=== PATIENT | female | born 1975 ===

== ENCOUNTER 2017-05-07 16:32 | Emergency (ER) | payer SELFPAY ==
[2017-05-07 16:32] VITALS: BMI 24.5
[2017-05-07 16:46] VITALS: BP 131/72; PULSE 83; RESP 16; TEMP 99.1; O2SAT 99
--- NOTE | 2017-05-07 17:13 | ED PDOC ---
HPI: Female Pain Time Seen by Provider: 05/07/17 16:50 Chief Complaint (Nursing): Female Genitourinary Chief Complaint (Provider): abdominal pain History Per: Patient (42 y/o female unknown LMP here with left lower quadrant pain and vaginal bleeding yesterday. Notes temp 100.1 Denies any dysuria. Has not had US confirmation of .) Past Medical History Reviewed: Historical Data, Nursing Documentation, Vital Signs Vital Signs: Last Vital Signs Temp 99.1 F 05/07/17 16:42 Pulse 83 05/07/17 16:42 Resp 16 05/07/17 16:42 BP 131/72 05/07/17 16:42 Pulse Ox 99 05/07/17 16:42 - Medical History PMH: Asthma (NEVER HOSPITALIZED), Gall Bladder Disease, Kidney Stones - Surgical History Surgical History: Cholecystectomy - Family History Family History: States: Unknown Family Hx - Immunization History Hx Tetanus Toxoid Vaccination: No Hx Influenza Vaccination: No Hx Pneumococcal Vaccination: No - Home Medications Home Medications: Ambulatory Orders Medication Instructions Recorded No Known Home Med 04/23/17 - Allergies Allergies/Adverse Reactions: Allergies Allergy/AdvReac Type Severity Reaction Status Date / Time No Known Allergies Allergy Verified 05/07/17 16:42 Review of Systems ROS Statement: Except As Marked, All Systems Reviewed And Found Negative Gastrointestinal: Positive for: Abdominal Pain Physical Exam - Reviewed Nursing Documentation Reviewed: Yes Vital Signs Reviewed: Yes - Physical Exam Appears: Positive for: Well, Non-toxic, No Acute Distress Head Exam: Positive for: ATRAUMATIC, NORMAL INSPECTION, NORMOCEPHALIC Skin: Positive for: Normal Color, Warm, DRY Eye Exam: Positive for: EOMI, Normal appearance, PERRL ENT: Positive for: Normal ENT Inspection Neck: Positive for: Normal, Painless ROM Cardiovascular/Chest: Positive for: Regular Rate, Rhythm Respiratory: Positive for: CNT, Normal Breath Sounds Gastrointestinal/Abdominal: Positive for: Normal Exam, Bowel Sounds, Soft Pelvic Exam: Positive for: Tender Adnexa (left adnexal tenderness) Back: Positive for: Normal Inspection Extremity: Positive for: Normal ROM Neurologic/Psych: Positive for: Alert, Oriented - ECG O2 Sat by Pulse Oximetry: 99 - Progress ED Course And Treament: patient left before treatment started. Disposition - Clinical Impression Clinical Impression: Abdominal pain during - Patient ED Disposition Is Patient to be Admitted: No - Disposition Disposition: Left W/O Treatment Disposition Time: 17:41 Condition: FAIR Forms: [email or web address] (Nepali)
== END 2017-05-07 18:00 | disposition left against medical advice (07) ==
LOC: H.ER 16:32
DX: O26.899 Other specified pregnancy related conditions, unspecified trimester (principal)

== ENCOUNTER 2018-10-05 13:28 | Emergency (ER) | payer OTHER, SELFPAY ==
[2018-10-05 13:29] VITALS: BMI 24.5
[2018-10-05] MEDS ORDERED: Sodium Chloride 0.9% 1,000 ML IV STA (14:19)
--- NOTE | 2018-10-05 14:21 | ED PDOC ---
HPI: General Adult Time Seen by Provider: 10/05/18 14:20 Chief Complaint (Nursing): Back Pain Chief Complaint (Provider): BACK PAIN/DIZZINESS History Per: Patient (43 Y/O FEMALE HERE WITH DIZZINESS ONGOING X 7 DAYS. STATES SYMPTOMS BEGAN WITH CHEST PAIN NOTED PRECEDING DIZZINESS. HAS HAD ADDITIONAL ABDOMINAL PAIN INTERMITTENT AT THAT TIME ASSOCIATED WITH NAUSEA. TODAY IS ADDITIONAL CONCERNED ABOUT LOWER BACK PAIN WITH INTERMITTENT NUMBNESS IN LOWER EXTREMITIES.) Past Medical History Reviewed: Historical Data, Nursing Documentation, Vital Signs Vital Signs: Last Vital Signs Temp 98.3 F 10/05/18 13:43 Pulse 69 10/05/18 13:43 Resp 17 10/05/18 13:43 BP 135/74 10/05/18 13:43 Pulse Ox 100 10/05/18 13:43 - Medical History PMH: Asthma (NEVER HOSPITALIZED), Gall Bladder Disease, Kidney Stones, Chronic Kidney Disease - Surgical History Surgical History: Cholecystectomy (1997) - Family History Family History: States: Unknown Family Hx - Immunization History Hx Tetanus Toxoid Vaccination: No Hx Influenza Vaccination: Yes Hx Pneumococcal Vaccination: No - Home Medications Home Medications: Ambulatory Orders Medication Instructions Recorded Doxycycline Hyclate 100 mg PO Q12 05/16/17 Ibuprofen [Motrin Tab] 600 mg PO Q8 #30 tab 05/16/17 Ibuprofen [Motrin] 600 mg PO QID PRN 05/16/17 Famotidine [Pepcid] 20 mg PO BID #10 tab 10/05/18 Naproxen 375 mg PO Q8 PRN #15 tablet 10/05/18 - Allergies Allergies/Adverse Reactions: Allergies Allergy/AdvReac Type Severity Reaction Status Date / Time No Known Allergies Allergy Verified 05/16/17 12:09 Review of Systems ROS Statement: Except As Marked, All Systems Reviewed And Found Negative Physical Exam - Reviewed Nursing Documentation Reviewed: Yes Vital Signs Reviewed: Yes - Physical Exam Appears: Positive for: Well, Non-toxic, No Acute Distress Head Exam: Positive for: ATRAUMATIC, NORMAL INSPECTION, NORMOCEPHALIC Skin: Positive for: Normal Color, Warm, DRY Eye Exam: Positive for: EOMI, Normal appearance, PERRL ENT: Positive for: Normal ENT Inspection Neck: Positive for: Normal, Painless ROM Cardiovascular/Chest: Positive for: Regular Rate, Rhythm Respiratory: Positive for: CNT, Normal Breath Sounds Gastrointestinal/Abdominal: Positive for: Normal Exam, Soft Back: Positive for: Normal Inspection, Vertebral Tenderness (LOWER PARALUMBAR TENDERNESS). Negative for: L CVA Tenderness, R CVA Tenderness Extremity: Positive for: Normal ROM Neurologic/Psych: Positive for: Alert, Oriented - Laboratory Results Result Diagrams: 10/05/18 14:30 10/05/18 14:30 - ECG ECG Rhythm: Positive for: Sinus Bradycardia (sinus bradycardia 59 bpm no ectopy no acute changes done at 14:21) O2 Sat by Pulse Oximetry: 100 Disposition - Clinical Impression Clinical Impression: Back strain, Dizziness - Patient ED Disposition Is Patient to be Admitted: No - Disposition Disposition: Routine/Home Disposition Time: 16:41 Condition: FAIR Prescriptions: Famotidine [Pepcid] 20 mg PO BID #10 tab Naproxen 375 mg PO Q8 PRN #15 tablet PRN Reason: Pain, Moderate (4-7) Instructions: Vertigo (a Type of Dizziness), Low Back Pain (DC) Forms: [facility] ED School/Work Excuse
[2018-10-05 15:04] LABS: BASO # 0.1 K/uL (0.0-0.2); BASO % 1.1 % (0.0-2.0); EOS # 0.4 K/uL (0.0-0.7); EOS % 7.5 % (0.0-4.0); HEMOGLOBIN 9.6 g/dL (12.0-16.0); LYMPH # 1.5 K/uL (1.0-4.3); MEAN CELL VOLUME 70.5 fl (81.0-99.0); MEAN CORPUSCULAR HEMOGLOBIN 21.7 pg (27.0-31.0); MEAN CORPUSCULAR HGB CONC 30.8 g/dL (33.0-37.0); MEAN PLATELET VOLUME 8.3 fl (7.2-11.7); MONO # 0.3 K/uL (0.0-0.8); MONO % 5.8 % (0.0-10.0); NEUT % 57.6 % (50.0-75.0); RBC 4.41 Mil/uL (3.80-5.20); RED CELL DISTRIBUTION WIDTH 17.4 % (11.5-14.5); WHITE BLOOD COUNT 5.2 K/uL (4.8-10.8)
[2018-10-05 15:07] LABS: SQUAMOUS EPITHIAL < 1 /hpf (0-5); URINE BILIRUBIN NEGATIVE (NEGATIVE); URINE BLOOD LARGE (NEGATIVE); URINE CLARITY SLIGHTY-CLOUDY (Clear); URINE COLOR YELLOW (YELLOW); URINE GLUCOSE (UA) NEG (NEGATIVE); URINE HYALINE CAST 0-2 /hpf (0-2); URINE LEUKOCYTE ESTERASE NEG Leu/uL (Negative); URINE PROTEIN NEGATIVE (NEGATIVE); URINE UROBILINOGEN 0.2-1.0 mg/dL (0.2-1.0)
[2018-10-05 15:14] LABS: ALBUMIN 3.9 g/dL (3.5-5.0); ALT/SGPT 25 U/L (9-52); AST/SGOT 25 U/L (14-36); BLOOD UREA NITROGEN 9 mg/dl (7-17); CALCIUM 9.1 mg/dL (8.4-10.2); GFR NON-AFRICAN AMERICAN > 60
--- NOTE | 2018-10-05 16:24 | CARD ---
APPROVED REPORT Date of service: 10/05/2018 EKG Measurement Heart [id number] IL 124P-3 [id number] <Conclusion> Sinus bradycardia Otherwise normal ECG
[2018-10-05 17:02] VITALS: BP 130/78; PULSE 78; RESP 19; TEMP 97.6; O2SAT 98
== END 2018-10-05 17:03 | disposition home or self-care (01) ==
LOC: H.ER 13:28
DX: S39.012A Strain of muscle, fascia and tendon of lower back, initial encounter (principal); X58.XXXA Exposure to other specified factors, initial encounter; Y92.89 Other specified places as the place of occurrence of the external cause; R42 Dizziness and giddiness
CPT/HCPCS: 80053; 81003; 81025; 83735; 84484; 85025; 93005; 96374; 96375; 99282; J1885; J7030

== ENCOUNTER 2018-11-02 08:47 | Emergency (ER) | payer OTHER ==
[2018-11-02 08:47] VITALS: BMI 24.5
[2018-11-02 09:05] VITALS: RESP 17; O2SAT 100
[2018-11-02] MEDS ORDERED: Sodium Chloride 0.9% 1,000 ML IV STA (09:26)
[2018-11-02 10:23] LABS: BASO # 0.1 K/uL (0.0-0.2); BASO % 1.2 % (0.0-2.0); EOS # 0.4 K/uL (0.0-0.7); EOS % 7.6 % (0.0-4.0); HEMOGLOBIN 8.1 g/dL (12.0-16.0); LYMPH # 1.1 K/uL (1.0-4.3); LYMPH % 23.9 % (20.0-40.0); MEAN CELL VOLUME 72.2 fl (81.0-99.0); MEAN CORPUSCULAR HGB CONC 30.5 g/dL (33.0-37.0); MEAN PLATELET VOLUME 8.4 fl (7.2-11.7); MONO # 0.3 K/uL (0.0-0.8); MONO % 5.5 % (0.0-10.0); NEUT # 2.9 K/uL (1.8-7.0); NEUT % 61.8 % (50.0-75.0); RBC 3.68 Mil/uL (3.80-5.20); RED CELL DISTRIBUTION WIDTH 18.2 % (11.5-14.5); WHITE BLOOD COUNT 4.7 K/uL (4.8-10.8)
[2018-11-02 11:13] LABS: ALB/GLOB RATIO 1.2 (1.0-2.1); ALT/SGPT 27 U/L (9-52); AST/SGOT 22 U/L (14-36); BLOOD UREA NITROGEN 6 mg/dl (7-17); CALCIUM 8.5 mg/dL (8.4-10.2); GFR NON-AFRICAN AMERICAN > 60
[2018-11-02 11:43] LABS: URINE COLOR RED (YELLOW)
[2018-11-02 11:44] LABS: URINE BILIRUBIN NEGATIVE (NEGATIVE); URINE CLARITY CLOUDY (Clear); URINE GLUCOSE (UA) NEGATIVE (NEGATIVE)
[2018-11-02 11:45] LABS: URINE BLOOD LARGE (NEGATIVE)
[2018-11-02 11:46] LABS: SQUAMOUS EPITHIAL 6 /hpf (0-5); URINE BACTERIA RARE (<OCC); URINE LEUKOCYTE ESTERASE SMALL Leu/uL (Negative); URINE PROTEIN 100 mg/dL (NEGATIVE); URINE UROBILINOGEN 0.2-1.0 mg/dL (0.2-1.0)
--- NOTE | 2018-11-02 12:13 | US ---
Date of service: 11/02/2018 HISTORY: LLQ pain, heavy bleeding 4 days duration. Personal history of fibroids. LMP 10/26/2018. COMPARISON: None available. TECHNIQUE: Transabdominal, transvaginal. Real -time technique with 2D, duplex and color Doppler. FINDINGS: UTERUS: Measures 6.9 x 9.8 x 12.3 cm. Enlarged heterogeneous . Location of fibroid and size: Submucosal Eduardo to the left of the midline 5.3 x 5.4 x 6.2 cm. ENDOMETRIUM: Complex fluid collection/mass within the endometrium 1.1 x 1.7 x 1.7 cm. Fluid, debris and septations identified. Overall endometrial thickness 3.5 cm. CERVIX: No cervical abnormality identified.Incidental finding: Nabothian cysts the largest measures 1.7 x 1.8 cm RIGHT OVARY: Measures 1.7 x 2.6 x 2.6 cm. No solid mass. Normal flow. LEFT OVARY: Measures 4.2 x 3.8 x 5.5 cm. No solid mass. Normal flow. Simple cyst 1.1 x 1.5 x 1.5 cm. Adjacent cyst 2.8 x 3 x 3.5 cm. FREE FLUID: No significant free fluid noted. OTHER FINDINGS: None. IMPRESSION: 1. Markedly thickened endometrium with cyst-like structure within the endometrial echo complex. Based on clinical history including an LMP it is unlikely this represents products of conception. Nonetheless tests may be valuable for further assessment. 2. Solitary uterine fibroid. 3. Adnexal cyst limited to the right ovary.
--- NOTE | 2018-11-02 16:12 | ED PDOC ---
HPI: Female Pain Time Seen by Provider: 11/02/18 09:08 Chief Complaint (Nursing): Abdominal Pain Chief Complaint (Provider): Pelvic Pain History Per: Patient Onset/Duration Of Symptoms: Days (x4-5) Current Symptoms Are (Timing): Still Present Additional Complaint(s): 43 y/o female with a PMHx of Kidney Stones, Asthma and Anemia presents to the ED for evaluation of pelvic pain associated with heavy menstruation, ongoing for 4- 5 days. Patient reports pain radiates to the back. Patient notes of having regular but normal menstrual cycles. Otherwise, patient denies fever, nausea, vomiting, diarrhea and urinary symptoms. Of note, patient states she is taking iron supplementation for Anemia. PMD: none provided CLAIMS EXAMINER: In [place], [place] Past Medical History Reviewed: Historical Data, Nursing Documentation, Vital Signs Vital Signs: Last Vital Signs Temp 98.4 F 11/02/18 09:03 Pulse 67 11/02/18 09:03 Resp 17 11/02/18 09:03 BP 124/75 11/02/18 09:03 Pulse Ox 100 11/02/18 09:03 - Medical History PMH: Asthma (NEVER HOSPITALIZED), Gall Bladder Disease, Kidney Stones, Chronic Kidney Disease - Surgical History Surgical History: Cholecystectomy (1997), - Family History Family History: States: Unknown Family Hx - Immunization History Hx Tetanus Toxoid Vaccination: No Hx Influenza Vaccination: Yes Hx Pneumococcal Vaccination: No - Home Medications Home Medications: Ambulatory Orders Medication Instructions Recorded Doxycycline Hyclate 100 mg PO Q12 05/16/17 Ibuprofen [Motrin Tab] 600 mg PO Q8 #30 tab 05/16/17 Ibuprofen [Motrin] 600 mg PO QID PRN 05/16/17 Famotidine [Pepcid] 20 mg PO BID #10 tab 10/05/18 Naproxen 375 mg PO Q8 PRN #15 tablet 10/05/18 Cephalexin [Keflex] 500 mg PO BID #10 tab 11/02/18 medroxyPROGESTERONEone Acetate 5 mg PO DAILY #5 tab 11/02/18 [Provera] - Allergies Allergies/Adverse Reactions: Allergies Allergy/AdvReac Type Severity Reaction Status Date / Time No Known Allergies Allergy Verified 05/16/17 12:09 Review of Systems ROS Statement: Except As Marked, All Systems Reviewed And Found Negative Constitutional: Negative for: Fever Gastrointestinal: Negative for: Nausea, Vomiting, Diarrhea Genitourinary Female: Positive for: Vaginal Bleeding, Pelvic Pain. Negative for: Dysuria, Frequency, Hematuria Physical Exam - Reviewed Nursing Documentation Reviewed: Yes Vital Signs Reviewed: Yes - Physical Exam Appears: Positive for: No Acute Distress Head Exam: Positive for: ATRAUMATIC, NORMOCEPHALIC Skin: Positive for: Normal Color, Warm, Dry. Negative for: Pallor Eye Exam: Positive for: Normal appearance, EOMI, PERRL Neck: Positive for: Normal Cardiovascular/Chest: Positive for: Regular Rate, Rhythm. Negative for: Tachycardia Respiratory: Positive for: Normal Breath Sounds. Negative for: Respiratory D istress Gastrointestinal/Abdominal: Positive for: Tenderness (Lower abdominal tenderness (left > right)) Pelvic Exam: Positive for: Blood (Mild to moderate blood involvement with small clots noted), Other (cervical os closed) Extremity: Positive for: Normal ROM. Negative for: Deformity Neurological/Psych: Positive for: Awake, Alert, Oriented (x3). Negative for: Motor/Sensory Deficits - Laboratory Results Result Diagrams: 11/02/18 09:47 11/02/18 09:47 Lab Results: Total Bilirubin 0.3 mg/dl (0.2-1.3) 11/02/18 09:47 AST 22 U/L (14-36) 11/02/18 09:47 ALT 27 U/L (9-52) 11/02/18 09:47 Alkaline Phosphatase 61 U/L (38-126) 11/02/18 09:47 Total Protein 7.3 G/DL (6.3-8.2) 11/02/18 09:47 Albumin 4.0 g/dL (3.5-5.0) 11/02/18 09:47 Globulin 3.3 gm/dL (2.2-3.9) 11/02/18 09:47 Albumin/Globulin Ratio 1.2 (1.0-2.1) 11/02/18 09:47 Urine Color Red (YELLOW) 11/02/18 09:47 Urine Clarity Cloudy (Clear) 11/02/18 09:47 Urine pH 6.0 (5.0-8.0) 11/02/18 09:47 Ur Specific [place] 1.014 (1.003-1.030) 11/02/18 09:47 Urine Protein 100 mg/dL (NEGATIVE) 11/02/18 09:47 Urine Glucose (UA) Negative mg/dL (NEGATIVE) 11/02/18 09:47 Urine Ketones Negative mg/dL (NEGATIVE) 11/02/18 09:47 Urine Blood Large (NEGATIVE) 11/02/18 09:47 Urine Nitrate Negative (NEGATIVE) 11/02/18 09:47 Urine Bilirubin Negative (NEGATIVE) 11/02/18 09:47 Urine Urobilinogen 0.2-1.0 mg/dL (0.2-1.0) 11/02/18 09:47 Ur Leukocyte Esterase Small Sangeeta/uL (Negative) 11/02/18 09:47 Urine RBC (Auto) 40903 /hpf (0-3) H 11/02/18 09:47 Urine Microscopic WBC 5 /hpf (0-5) 11/02/18 09:47 Ur Squamous Epith Cells 6 /hpf (0-5) H 11/02/18 09:47 Urine Bacteria Rare (<OCC) 11/02/18 09:47 - ECG O2 Sat by Pulse Oximetry: 100 (RA) Pulse Ox Interpretation: Normal Medical Decision Making Medical Decision Making: Time: 925 A/P: -- CMP -- ED Urine -- ED Urine Dipstick -- CBC with Differentials -- Sodium Chloride IV 1000 mls/hr -- Pepcid 20 mg IV -- Toradol 15 mg IVP -- Urine Culture -- Urinalysis -- US Pelvis/Transvaginal -- Blood work reviewed and demonstrate a hemoglobin of 8.1 that is slightly lower than hemoglobin from one month prior. -- Discussed with CLAIMS EXAMINER on-call, Dr. Brooks who recommends OCPs or Provera. Time: 1558 -- Discussed with patient who preferred to not take intermediate card tender medications. Therefore, patient to be prescribed a short course of Provera for stability and with instructions to follow up with CLAIMS EXAMINER this week. Patient is in agreement with plan of care. -- Given lack of tachycardia and blood work, there is no indication for current transfusion. Patient reports of having iron pills at home. Scribe Attestation: Documented by Deja Chinchilla, acting as a scribe for Mason Horne III, DO. Provider Scribe Attestation: All medical record entries made by the Scribe were at my direction and personally dictated by me. I have reviewed the chart and agree that the record a ccurately reflects my personal performance of the history, physical exam, medical decision making, and the department course for this patient. I have also personally directed, reviewed, and agree with the discharge instructions and disposition. Disposition - Clinical Impression Clinical Impression: Menometrorrhagia, UTI (urinary tract infection) - Patient ED Disposition Is Patient to be Admitted: No Counseled Patient/Family Regarding: Studies Performed, Diagnosis, Need For Followup, Rx Given - Disposition Disposition: Routine/Home Disposition Time: 15:59 Condition: STABLE Additional Instructions: See your CLAIMS EXAMINER doctor this week for further testing. Return to ER for any worse or new symptoms. Take medications as directed. Prescriptions: Cephalexin [Keflex] 500 mg PO BID #10 tab medroxyPROGESTERONEone Acetate [Provera] 5 mg PO DAILY #5 tab Instructions: Urinary Tract Infection, Adult (DC), Heavy Periods, Endometrial Ablation (DC) Forms: [employer] (Telugu)
[2018-11-02 16:20] VITALS: BP 118/65; PULSE 72; TEMP 98.1
== END 2018-11-02 15:59 | disposition home or self-care (01) ==
LOC: H.ER 08:47
DX: N39.0 Urinary tract infection, site not specified (principal); N92.1 Excessive and frequent menstruation with irregular cycle; D64.9 Anemia, unspecified; R93.89 Abnormal findings on diagnostic imaging of other specified body structures

== ENCOUNTER 2018-11-27 10:47 | Emergency (ER) | payer OTHER, SELFPAY ==
[2018-11-27 10:50] VITALS: BMI 25.9
[2018-11-27 10:53] VITALS: PULSE 78
[2018-11-27] MEDS ORDERED: Sodium Chloride 0.9% 1,000 ML IV STA (11:32)
--- NOTE | 2018-11-27 11:42 | ED PDOC ---
HPI: Female Pain Time Seen by Provider: 11/27/18 10:59 Chief Complaint (Nursing): Abdominal Pain History Per: Patient Additional Complaint(s): Pt. states for the past week she's had heavy vaginal bleeding (pt unable to estimate how many pads per day she uses but states today she is already on her 3rd pad). She's had progressively worsening pelvic cramping x 3 days. She has been using Tylenol without relief. Of note, pt. states she [facility]. Also reports having N/V. Last BM was yesterday and was normal. Denies fever, chills, weakness, chest pain, SOB, dysuria, hx of anemia, previous blood transfusions. Abnormal Vaginal Bleeding: Yes Past Medical History Reviewed: Historical Data, Nursing Documentation, Vital Signs Vital Signs: Last Vital Signs Temp 97.7 F 11/27/18 10:51 Pulse 78 11/27/18 10:51 Resp 20 11/27/18 10:51 BP 131/87 11/27/18 10:51 Pulse Ox 100 11/27/18 10:51 - Medical History PMH: Asthma (NEVER HOSPITALIZED), Gall Bladder Disease, Kidney Stones, Chronic Kidney Disease - Surgical History Surgical History: Cholecystectomy (1997), - Family History Family History: States: No Known Family Hx - Immunization History Hx Tetanus Toxoid Vaccination: No Hx Influenza Vaccination: Yes Hx Pneumococcal Vaccination: No - Home Medications Home Medications: Ambulatory Orders Medication Instructions Recorded Doxycycline Hyclate 100 mg PO Q12 05/16/17 Ibuprofen [Motrin Tab] 600 mg PO Q8 #30 tab 05/16/17 Ibuprofen [Motrin] 600 mg PO QID PRN 05/16/17 Famotidine [Pepcid] 20 mg PO BID #10 tab 10/05/18 Naproxen 375 mg PO Q8 PRN #15 tablet 10/05/18 Cephalexin [Keflex] 500 mg PO BID #10 tab 11/02/18 medroxyPROGESTERONEone Acetate 5 mg PO DAILY #5 tab 11/02/18 [Provera] Naproxen [Naprosyn] 500 mg PO BID PRN #10 tab 11/27/18 - Allergies Allergies/Adverse Reactions: Allergies Allergy/AdvReac Type Severity Reaction Status Date / Time No Known Allergies Allergy Verified 05/16/17 12:09 Review of Systems ROS Statement: Except As Marked, All Systems Reviewed And Found Negative Genitourinary Female: Positive for: Vaginal Bleeding, Pelvic Pain Physical Exam - Physical Exam Appears: Positive for: Well, Non-toxic, No Acute Distress Skin: Positive for: Normal Color, Warm. Negative for: Rash Eye Exam: Positive for: Normal appearance. Negative for: Scleral icterus Cardiovascular/Chest: Positive for: Regular Rate, Rhythm. Negative for: Tachycardia Respiratory: Positive for: Normal Breath Sounds. Negative for: Respiratory Distress Gastrointestinal/Abdominal: Positive for: Normal Exam, Soft. Negative for: Tenderness, Guarding Back: Negative for: L CVA Tenderness, R CVA Tenderness Neurological/Psych: Positive for: Awake, Alert, Oriented (x3) - Laboratory Results Result Diagrams: 11/27/18 11:50 11/27/18 11:50 - ECG O2 Sat by Pulse Oximetry: 100 - Progress ED Course And Treament: Labs, TVUS, toradol 30mg IV, IV NS bolus x 1, zofran 4mg IV ordered. Re-evaluation Time: 13:40 (Pt reports complete relief of pelvic pain. Ad[facility] but is to return to ED immediately if symptoms worsen. ) Condition: Re-examined, Improved Disposition - Clinical Impression Clinical Impression: Fibroids - Patient ED Disposition Is Patient to be Admitted: No - Disposition Referrals: [facility] [Outside] Disposition: Routine/Home Disposition Time: 13:40 Condition: IMPROVED Additional Instructions: FOLLOW UP WITH [facility] FOR FURTHER EVALUATION RETURN TO ED IMMEDIATELY IF SYMPTOMS WORSEN HADLEY VITALE, thank you for letting us take care of you today. Your provider was Antolin Franco MD and you were treated for LOWER ABD PAIN, VAGINAL BLEEDING. The emergency medical care you received today was directed at your acute symptoms. If you were prescribed any medication, please fill it and take as directed. It may take several days for your symptoms to resolve. Return to the Emergency Department if your symptoms worsen, do not improve, or if you have any other problems. Please contact your doctor or call one of the physicians/clinics you have been referred to that are listed on the Patient Visit Information form that is included in your discharge packet. Bring any paperwork you were given at discharge with you along with any medications you are taking to your follow up visit. Our treatment cannot replace ongoing medical care by a primary care provider outside of the emergency department. Thank you for allowing the [facility] team to be part of your care today. If you had an X-Ray or CT scan: A Radiologist will review the ED reading if any change in treatment is needed we will contact you. If you had a blood, urine, or wound culture: It will take several days for the results, if any change in treatment is needed we will contact you. If you had an STI test: It will take 48 hours for the results. Please call after 1 week if you have not heard back. Prescriptions: Naproxen [Naprosyn] 500 mg PO BID PRN #10 tab PRN Reason: Pain Instructions: Uterine Fibroids (DC) Forms: [employer] (Cymraes)
[2018-11-27 12:36] LABS: BASO # 0.1 K/uL (0.0-0.2); BASO % 1.1 % (0.0-2.0); EOS # 0.2 K/uL (0.0-0.7); EOS % 4.2 % (0.0-4.0); HEMOGLOBIN 8.2 g/dL (12.0-16.0); LYMPH # 1.1 K/uL (1.0-4.3); LYMPH % 18.8 % (20.0-40.0); MEAN CORPUSCULAR HEMOGLOBIN 21.4 pg (27.0-31.0); MEAN CORPUSCULAR HGB CONC 30.6 g/dL (33.0-37.0); MEAN PLATELET VOLUME 7.8 fl (7.2-11.7); MONO # 0.3 K/uL (0.0-0.8); MONO % 4.7 % (0.0-10.0); NEUT # 4.2 K/uL (1.8-7.0); NEUT % 71.2 % (50.0-75.0); NRBC % 0.1 % (0.0-0.0); RBC 3.84 Mil/uL (3.80-5.20); RED CELL DISTRIBUTION WIDTH 16.7 % (11.5-14.5); WHITE BLOOD COUNT 5.9 K/uL (4.8-10.8)
[2018-11-27 12:53] LABS: ALB/GLOB RATIO 1.3 (1.0-2.1); ALBUMIN 4.1 g/dL (3.5-5.0); ALT/SGPT 19 U/L (9-52); AST/SGOT 24 U/L (14-36); BLOOD UREA NITROGEN 7 mg/dl (7-17); CALCIUM 8.8 mg/dL (8.4-10.2); GFR NON-AFRICAN AMERICAN > 60; LIPASE 93 U/L (23-300)
[2018-11-27 13:11] LABS: URINE BILIRUBIN NEGATIVE (NEGATIVE); URINE CLARITY Turbid (Clear); URINE COLOR RED (YELLOW); URINE GLUCOSE (UA) 100 mg/dL (NEGATIVE)
[2018-11-27 13:12] LABS: URINE BLOOD LARGE (NEGATIVE); URINE LEUKOCYTE ESTERASE TRACE Leu/uL (Negative); URINE PROTEIN >=300 mg/dL (NEGATIVE); URINE UROBILINOGEN 0.2 mg/dL (0.2-1.0)
[2018-11-27 13:13] LABS: SQUAMOUS EPITHIAL 1 /hpf (0-5)
--- NOTE | 2018-11-27 13:30 | US ---
Date of service: 11/27/2018 HISTORY: Right-sided pelvic pain. LMP 11/15/2018. COMPARISON: 11/02/2018. TECHNIQUE: Transvaginal only. Real -time technique with 2D, duplex and color Doppler FINDINGS: UTERUS: Measures 7.4 x 11.7 x 10.6 cm. Enlarged heterogeneous uterus. Location of fibroid and size: Submucosal, to the left of the midline measures 5.8 x 5 x 5.8 cm. ENDOMETRIUM: Measures 22.3 mm in diameter. Endometrial hypertrophy. Septated cyst/complex fluid identified previously within the endometrial canal is not visible. CERVIX: No cervical abnormality identified. Complex nabothian cyst 1.7 x 1.4 cm. Similar finding identified previously. RIGHT OVARY: Measures 2.8 x 3.5 x 2.2 cm. No solid mass. Normal flow. LEFT OVARY: Not visible. FREE FLUID: No significant free fluid noted. OTHER FINDINGS: None. IMPRESSION: Stable findings with respect to the uterus including uterine enlargement, solitary submucosal fibroid. Heterogeneous endometrium. Diminished in thickness and complexity compared to the prior study. Unremarkable right adnexa. Limitations of the current examination: Non visible left adnexa.
[2018-11-27 14:23] VITALS: BP 110/72; RESP 18; TEMP 98.3; O2SAT 98
== END 2018-11-27 14:30 | disposition home or self-care (01) ==
LOC: H.ER 10:47
DX: D25.9 Leiomyoma of uterus, unspecified (principal)
CPT/HCPCS: 76830; 80053; 81003; 81025; 83690; 85025; 86850; 86900; 87086; 96361; 96374; 96375; 99284; J1885; J2405; J7030

== ENCOUNTER 2018-11-28 15:24 | Observation (INO) | payer SELFPAY ==
[2018-11-28 15:24] VITALS: BMI 25.9
[2018-11-28] MEDS ORDERED: Sodium Chloride 0.9% 1,000 ML IV STA (15:48)
--- NOTE | 2018-11-28 15:55 | ED PDOC ---
HPI: Female Pain Time Seen by Provider: 11/28/18 15:41 Chief Complaint (Nursing): Female Genitourinary Chief Complaint (Provider): Vaginal bleeding History Per: Patient History/Exam Limitations: no limitations Onset/Duration Of Symptoms: Persistent (3 weeks) Current Symptoms Are (Timing): Still Present Additional Complaint(s): 43yo female, with history of uterine fibroids, comes to ER reporting vaginal bleeding x 3 weeks. She reports heavy bleeding over the past 2 weeks and states she was evaluated by PMD, placed on Provera but with no relief of the sy mptoms. Patient was evaluated in this ER yesterday, had labs (hgb level 8.2) and was advised to follow up with [facility] as scheduled. Patient states she presents today due to continued bleeding, states she has been changing pads every hours and now has started to pass clots. Patient reports some lower abdominal pain, which is tolerable. No fever, chills, lightheadedness, dizziness or other complaints. Abnormal Vaginal Bleeding: Yes Past Medical History Reviewed: Historical Data, Nursing Documentation, Vital Signs Vital Signs: Last Vital Signs Temp 99.2 F 11/28/18 15:33 Pulse 82 11/28/18 15:33 Resp 18 11/28/18 15:33 BP 128/69 11/28/18 15:33 Pulse Ox 99 11/28/18 15:33 - Medical History PMH: Asthma (NEVER HOSPITALIZED), Gall Bladder Disease, Kidney Stones, Chronic Kidney Disease - Surgical History Surgical History: Cholecystectomy (1997), - Family History Family History: States: No Known Family Hx - Social History Current smoker - smoking cessation education provided: No Alcohol: None Drugs: Denies - Immunization History Hx Tetanus Toxoid Vaccination: No Hx Influenza Vaccination: Yes Hx Pneumococcal Vaccination: No - Home Medications Home Medications: Ambulatory Orders Medication Instructions Recorded MedroxyPROGESTERone [Provera] 10 mg PO DAILY 11/28/18 - Allergies Allergies/Adverse Reactions: Allergies Allergy/AdvReac Type Severity Reaction Status Date / Time No Known Allergies Allergy Verified 11/28/18 15:33 Review of Systems ROS Statement: Except As Marked, All Systems Reviewed And Found Negative Constitutional: Negative for: Weakness Cardiovascular: Negative for: Light Headedness Genitourinary Female: Positive for: Vaginal Bleeding, Pelvic Pain Neurological: Negative for: Dizziness Physical Exam - Reviewed Nursing Documentation Reviewed: Yes Vital Signs Reviewed: Yes - Physical Exam Appears: Positive for: Non-toxic, No Acute Distress Head Exam: Positive for: ATRAUMATIC, NORMAL INSPECTION, NORMOCEPHALIC Skin: Positive for: Normal Color Eye Exam: Positive for: Normal appearance, EOMI, PERRL Neck: Positive for: Supple Cardiovascular/Chest: Positive for: Regular Rate, Rhythm Respiratory: Positive for: Normal Breath Sounds. Negative for: Respiratory Distress Gastrointestinal/Abdominal: Positive for: Soft, Tenderness (mild lower abdominal tenderness). Negative for: Mass, Guarding, Rebound Back: Positive for: Normal Inspection Extremity: Positive for: Normal ROM Neurological/Psych: Positive for: Awake, Alert, Oriented (x 3) - Laboratory Results Result Diagrams: 11/29/18 05:42 11/29/18 05:42 - ECG O2 Sat by Pulse Oximetry: 99 (RA) Pulse Ox Interpretation: Normal Medical Decision Making Medical Decision Making: Impression: 43yo female with menorrhagia in setting of fibroids Plan: -- Labs -- IV Fluids -- Urinalysis 1732 Patients labs reviewed and significant for anemia with hemoglobin of 7.1. Given description for symptomatic anemia and menorrhagia, will admit patient to Dr. Velazquez for infusion. Scribe Attestation: Documented by Elisa Farris acting as a scribe for Antolin Franco MD. Provider Attestation: All medical record entries made by the Scribe were at my direction and personally dictated by me. I have reviewed the chart and agree that the record accurately reflects my personal performance of the history, physical exam, medical decision making, and the department course for this patient. I have also personally directed, reviewed, and agree with the discharge instructions and disposition. Disposition - Clinical Impression Clinical Impression: Anemia, Menorrhagia - Patient ED Disposition Is Patient to be Admitted: Yes - Disposition Disposition Time: 17:32 Condition: FAIR
[2018-11-28 16:50] LABS: PROTHROMBIN TIME 11.6 Seconds (9.8-13.1)
[2018-11-28 16:52] LABS: PARTIAL THROMBOPLASTIN TIME 27.6 Seconds (25.6-37.1)
[2018-11-28 16:55] LABS: BASO # 0.1 K/uL (0.0-0.2); BASO % 1.1 % (0.0-2.0); EOS # 0.3 K/uL (0.0-0.7); EOS % 5.4 % (0.0-4.0); HEMOGLOBIN 7.1 g/dL (12.0-16.0); LYMPH # 1.3 K/uL (1.0-4.3); LYMPH % 22.7 % (20.0-40.0); MEAN CELL VOLUME 69.4 fl (81.0-99.0); MEAN CORPUSCULAR HEMOGLOBIN 21.4 pg (27.0-31.0); MEAN CORPUSCULAR HGB CONC 30.9 g/dL (33.0-37.0); MONO # 0.3 K/uL (0.0-0.8); MONO % 5.1 % (0.0-10.0); NEUT # 3.7 K/uL (1.8-7.0); NEUT % 65.7 % (50.0-75.0); NRBC % 0.1 % (0.0-0.0); RBC 3.31 Mil/uL (3.80-5.20); RED CELL DISTRIBUTION WIDTH 16.5 % (11.5-14.5); WHITE BLOOD COUNT 5.6 K/uL (4.8-10.8)
[2018-11-28 17:34] LABS: ALB/GLOB RATIO 1.2 (1.0-2.1); ALBUMIN 3.8 g/dL (3.5-5.0); ALT/SGPT 21 U/L (9-52); AST/SGOT 20 U/L (14-36); BLOOD UREA NITROGEN 12 mg/dl (7-17); CALCIUM 8.4 mg/dL (8.4-10.2); GFR NON-AFRICAN AMERICAN > 60
--- NOTE | 2018-11-28 18:17 | CP.PCM.HP ---
<Sultan Chelle - Last Filed: 11/28/18 20:42> History of Present Illness - History of Present Illness History of Present Illness: History obtained from patient and review of patients medical record CC: Vaginal bleeding HPI: 43 yo with PMHx uterine fibroids and menorrhagia presents to [facility] ED with complaints of worsening vaginal bleeding x 1 week. Patient reports she changes 1 pad almost every 1-2 hours with occasional blood clots. Reports some abdominal cramp associated with it. Patient reports feeling weak and dizzy in the morning. Patient was seen by her [facility] on 11/02/18 and was prescribed provera 10 mg po daily for 25 days. Patient reports she has been taking it but still h ave heavy vaginal bleeding. Patient was diagnosed with uterine fibroids 2 years ago. Denies dysuria, nausea, vomiting, fever, chills or flank pain. Denies any chest pain, dyspnea, palpitation or blurry vision. LMP 11/23/18. In ED, CBC shows H&H 7.1/23.0. Patient had multiple visits within this month in ED for similar complaints. Patient is admitted for symptomatic anemia. PMD: [facility] (has appt at [facility] on 12/07/18) PMHx: Uterine fibroids, Menorrhagia, asthma Past Ob hx: 1) C/S x 1 in 1996 2) in 2002. Spont ab x 2, between 1996 and 2002, each approx 7 weeks, D&C x 1. Past [address] MAGISTRATE hx: LMP 11/23/18. Diagnosed with leiomyoma 2 years ago. No h/o STIs or abnormal Pap. Last Pap last year at [facility] (neg as per patient). Mammogram in 11/2018: BIRAD 2 for dense breasts. . Patient recalls having endometrial biopsy by Dr. Sharee Obrien 2015 - reportedly negative. PSHx: C/S x 1, D&C x 1; Laparoscopic cholecystectomy in 1997 Soc Hx: denies tobacco, illicit drug or EtOH use. Fam Hx: Mother age 58 - cervical cancer. Father alive 78 - no med issues. Allergies: NKDA Meds: Provera 10 mg po daily x 25 days, Albuterol HFA prn Present on Admission - Present on Admission Any Indicators Present on Admission: No Review of Systems - Review of Systems Review of Systems: All 12 systems reviewed and negative except as mentioned above Past Patient History - Infectious Disease Hx of Infectious Diseases: None - Past Medical History & Family History Past Medical History?: Yes - Past Social History Alcohol: None Drugs: Denies - CARDIAC Hx Cardiac Disorders: No - PULMONARY Hx Asthma: Yes (NEVER HOSPITALIZED) - NEUROLOGICAL Hx Neurological Disorder: No - HEENT Hx HEENT Problems: No - RENAL Hx Chronic Kidney Disease: Yes Hx Kidney Stones: Yes - ENDOCRINE/METABOLIC Hx Endocrine Disorders: No - HEMATOLOGICAL/ONCOLOGICAL Hx Blood Disorders: No - INTEGUMENTARY Hx Dermatological Problems: No - MUSCULOSKELETAL/RHEUMATOLOGICAL Hx Musculoskeletal Disorders: No - GASTROINTESTINAL Hx Gall Bladder Disease: Yes - GENITOURINARY/GYNECOLOGICAL Hx Genitourinary Disorders: Yes - PSYCHIATRIC Hx Psychophysiologic Disorder: No Hx Substance Use: No - SURGICAL HISTORY Hx Cholecystectomy: Yes (1997) - ANESTHESIA Hx Anesthesia: Yes Hx Anesthesia Reactions: No Hx Malignant Hyperthermia: No Meds Allergies/Adverse Reactions: Allergies Allergy/AdvReac Type Severity Reaction Status Date / Time No Known Allergies Allergy Verified 11/28/18 15:33 Physical Exam - Constitutional Appears: Non-toxic, No Acute Distress - Head Exam Head Exam: NORMAL INSPECTION - Eye Exam Eye Exam: EOMI, Normal appearance, PERRL - ENT Exam ENT Exam: Mucous Membranes Moist, Normal Exam, Normal Oropharynx - Neck Exam Neck exam: Positive for: Normal Inspection - Respiratory Exam Respiratory Exam: Clear to Auscultation Bilateral, NORMAL BREATHING PATTERN. absent: Rhonchi, Wheezes, Respiratory Distress - Cardiovascular Exam Cardiovascular Exam: REGULAR RHYTHM, +S1, +S2 - GI/Abdominal Exam GI & Abdominal Exam: Normal Bowel Sounds, Soft. absent: Distended, Guarding, Rebound, Rigid, Tenderness - Extremities Exam Extremities exam: Positive for: normal inspection. Negative for: calf tenderness, pedal edema - Back Exam Back exam: absent: CVA tenderness (L), CVA tenderness (R) - Neurological Exam Neurological exam: Alert, Oriented x3 - Psychiatric Exam Psychiatric exam: Normal Affect, Normal Mood - Skin Skin Exam: Normal Color Results - Vital Signs Recent Vital Signs: Last Vital Signs Temp 99.2 F 11/28/18 15:33 Pulse 90 11/28/18 17:48 Resp 18 11/28/18 17:48 BP 131/79 11/28/18 17:48 Pulse Ox 100 11/28/18 17:48 - Labs Result Diagrams: 11/28/18 16:26 11/28/18 16:26 Labs: Laboratory Results - last 24 hr 11/28/18 11/28/18 11/28/18 16:26 16:26 16:26 WBC 5.6 RBC 3.31 L Hgb 7.1 L Hct 23.0 L MCV 69.4 L MCH 21.4 L MCHC 30.9 L RDW 16.5 H Plt Count 312 MPV 8.0 Neut % (Auto) 65.7 Lymph % (Auto) 22.7 [place] % (Auto) 5.1 Eos % (Auto) 5.4 H Baso % (Auto) 1.1 Neut # (Auto) 3.7 Lymph # (Auto) 1.3 [place] # (Auto) 0.3 Eos # (Auto) 0.3 Baso # (Auto) 0.1 PT INR APTT Sodium 137 Potassium 3.5 L Chloride 105 Carbon Dioxide 25 Anion Gap 11 BUN 12 Creatinine 0.5 L Est GFR ( Amer) > 60 Est GFR (Non-Af Amer) > 60 Random Glucose 83 Calcium 8.4 Total Bilirubin 0.2 AST 20 ALT 21 Alkaline Phosphatase 63 Total Protein 6.9 Albumin 3.8 Globulin 3.1 Albumin/Globulin Ratio 1.2 Blood Type B POSITIVE Antibody Screen Negative Crossmatch See Detail BBK History Checked Patient has bt 11/28/18 16:26 WBC RBC Hgb Hct MCV MCH MCHC RDW Plt Count MPV Neut % (Auto) Lymph % (Auto) [place] % (Auto) Eos % (Auto) Baso % (Auto) Neut # (Auto) Lymph # (Auto) [place] # (Auto) Eos # (Auto) Baso # (Auto) PT 11.6 INR 1.0 APTT 27.6 Sodium Potassium Chloride Carbon Dioxide Anion Gap BUN Creatinine Est GFR ( Amer) Est GFR (Non-Af Amer) Random Glucose Calcium Total Bilirubin AST ALT Alkaline Phosphatase Total Protein Albumin Globulin Albumin/Globulin Ratio Blood Type Antibody Screen Crossmatch BBK History Checked Assessment & Plan - Assessment and Plan (Free Text) Assessment: 43 yo with PMHx uterine fibroids and menorrhagia admitted for symptomatic anemia. Plan: Symptomatic anemia secondary to menorrhagia -Admit to Med/surg -H&H 7.1/23.0 -Stable vitals -Transfuse 2 units PRBC -F/U AM labs, TSH and iron studies Submucosal uterine fibroids -TV US on 11/27/18 shows submucosal uterine fibroid of 5.8 x 5 x 5.8 cm -F/U outpatient [facility] MAGISTRATE Abnormal urinalysis -Denies UTI symptoms -Afebrile, stable vitals, WBC 5.6 -Urine cx on 11/27/18: neg -f/u urine C&S Hypokalemia -K+ 3.5 -s/p KCl 20 meq po -f/u AM labs History of Asthma -Asymptomatic -Albuterol prn Diet: -Regular diet DVT prophylaxis -SCDs Patient seen, examined and plan discussed with Dr.Herrera Sultan Corbett, pgy-2 <Alfred Velazquez - Last Filed: 11/29/18 09:31> Results - Vital Signs Recent Vital Signs: Last Vital Signs Temp 98.4 F 11/29/18 08:00 Pulse 68 11/29/18 08:00 Resp 18 11/29/18 08:00 BP 109/66 11/29/18 08:00 Pulse Ox 98 11/29/18 08:00 - Labs Result Diagrams: 11/29/18 05:42 11/29/18 05:42 Labs: Laboratory Results - last 24 hr 11/28/18 11/28/18 11/28/18 16:26 16:26 16:26 WBC 5.6 RBC 3.31 L Hgb 7.1 L Hct 23.0 L MCV 69.4 L MCH 21.4 L MCHC 30.9 L RDW 16.5 H Plt Count 312 MPV 8.0 Neut % (Auto) 65.7 Lymph % (Auto) 22.7 [place] % (Auto) 5.1 Eos % (Auto) 5.4 H Baso % (Auto) 1.1 Neut # (Auto) 3.7 Lymph # (Auto) 1.3 [place] # (Auto) 0.3 Eos # (Auto) 0.3 Baso # (Auto) 0.1 PT INR APTT Sodium 137 Potassium 3.5 L Chloride 105 Carbon Dioxide 25 Anion Gap 11 BUN 12 Creatinine 0.5 L Est GFR ( Amer) > 60 Est GFR (Non-Af Amer) > 60 Random Glucose 83 Calcium 8.4 Iron TIBC % Saturation Ferritin Total Bilirubin 0.2 AST 20 ALT 21 Alkaline Phosphatase 63 Total Protein 6.9 Albumin 3.8 Globulin 3.1 Albumin/Globulin Ratio 1.2 TSH 3rd Generation Urine Color Urine Clarity Urine pH Ur Specific [place] Urine Protein Urine Glucose (UA) Urine Ketones Urine Blood Urine Nitrate Urine Bilirubin Urine Urobilinogen Ur Leukocyte Esterase Urine RBC (Auto) Urine Microscopic WBC Ur Squamous Epith Cells Urine Bacteria Blood Type B POSITIVE Antibody Screen Negative Crossmatch See Detail BBK History Checked Patient has bt 11/28/18 11/28/18 11/29/18 16:26 16:26 05:42 WBC 6.5 RBC 4.04 Hgb 9.3 L D Hct 29.0 L MCV 71.9 L D MCH 23.1 L MCHC 32.1 L RDW 18.4 H Plt Count 291 MPV 7.8 Neut % (Auto) 61.0 Lymph % (Auto) 26.6 [place] % (Auto) 5.5 Eos % (Auto) 5.5 H Baso % (Auto) 1.4 Neut # (Auto) 4.0 Lymph # (Auto) 1.7 [place] # (Auto) 0.4 Eos # (Auto) 0.4 Baso # (Auto) 0.1 PT 11.6 INR 1.0 APTT 27.6 Sodium Potassium Chloride Carbon Dioxide Anion Gap BUN Creatinine Est GFR ( Amer) Est GFR (Non-Af Amer) Random Glucose Calcium Iron TIBC % Saturation Ferritin Total Bilirubin AST ALT Alkaline Phosphatase Total Protein Albumin Globulin Albumin/Globulin Ratio TSH 3rd Generation Urine Color Dark red Urine Clarity Turbid Urine pH 6.5 Ur Specific [place] 1.020 Urine Protein >=300 Urine Glucose (UA) 100 Urine Ketones 40 Urine Blood Trace-intact Urine Nitrate Positive H Urine Bilirubin Large Urine Urobilinogen 4.0 H Ur Leukocyte Esterase Large Urine RBC (Auto) 40 H Urine Microscopic WBC 8 H Ur Squamous Epith Cells 1 Urine Bacteria Mod H Blood Type Antibody Screen Crossmatch BBK History Checked 11/29/18 11/29/18 05:42 05:42 WBC RBC Hgb Hct MCV MCH MCHC RDW Plt Count MPV Neut % (Auto) Lymph % (Auto) [place] % (Auto) Eos % (Auto) Baso % (Auto) Neut # (Auto) Lymph # (Auto) [place] # (Auto) Eos # (Auto) Baso # (Auto) PT INR APTT Sodium 138 Potassium 4.1 Chloride 107 Carbon Dioxide 26 Anion Gap 9 L BUN 9 Creatinine 0.5 L Est GFR ( Amer) > 60 Est GFR (Non-Af Amer) > 60 Random Glucose 94 Calcium 8.1 L Iron 221 H TIBC 330 % Saturation 67 H Ferritin 4.7 L Total Bilirubin AST ALT Alkaline Phosphatase Total Protein Albumin Globulin Albumin/Globulin Ratio TSH 3rd Generation 2.61 Urine Color Urine Clarity Urine pH Ur Specific [place] Urine Protein Urine Glucose (UA) Urine Ketones Urine Blood Urine Nitrate Urine Bilirubin Urine Urobilinogen Ur Leukocyte Esterase Urine RBC (Auto) Urine Microscopic WBC Ur Squamous Epith Cells Urine Bacteria Blood Type Antibody Screen Crossmatch BBK History Checked Attending/Attestation - Attestation I have personally seen and examined this patient.: Yes I have fully participated in the care of the patient.: Yes I have reviewed all pertinent clinical information: Yes Notes (Text): 11/29/18 09:30 Patient seen and examined with resident. Case discussed and agreed with assessment and plan of management.
[2018-11-28 18:26] LABS: URINE CLARITY Turbid (Clear); URINE COLOR DARK RED (YELLOW)
[2018-11-28 18:27] LABS: PH,URINE 6.5 (5.0-8.0); URINE BILIRUBIN LARGE (NEGATIVE); URINE BLOOD TRACE-INTACT (NEGATIVE); URINE GLUCOSE (UA) 100 mg/dL (NEGATIVE)
[2018-11-28 18:28] LABS: URINE PROTEIN >=300 mg/dL (NEGATIVE)
[2018-11-28 18:29] LABS: URINE LEUKOCYTE ESTERASE LARGE Leu/uL (Negative)
[2018-11-28 18:32] LABS: URINE BACTERIA MOD (<OCC)
[2018-11-28 18:38] LABS: SQUAMOUS EPITHIAL 1 /hpf (0-5)
[2018-11-28] MEDS ORDERED: Potassium Chloride 20 mEq ER Tab PO ONE ×2 (20:16→20:35)
[2018-11-28] MEDS ORDERED: Albuterol 0.083% Inhal Sol (2.5 mg/3 mL) UD INH PRN (20:36)
[2018-11-28 23:21] VITALS: RESP 18
[2018-11-29 06:28] LABS: BASO # 0.1 K/uL (0.0-0.2); BASO % 1.4 % (0.0-2.0); EOS # 0.4 K/uL (0.0-0.7); EOS % 5.5 % (0.0-4.0); HEMOGLOBIN 9.3 g/dL (12.0-16.0); LYMPH # 1.7 K/uL (1.0-4.3); LYMPH % 26.6 % (20.0-40.0); MEAN CELL VOLUME 71.9 fl (81.0-99.0); MEAN CORPUSCULAR HEMOGLOBIN 23.1 pg (27.0-31.0); MEAN CORPUSCULAR HGB CONC 32.1 g/dL (33.0-37.0); MEAN PLATELET VOLUME 7.8 fl (7.2-11.7); MONO # 0.4 K/uL (0.0-0.8); MONO % 5.5 % (0.0-10.0); NRBC % 0.1 % (0.0-0.0); RBC 4.04 Mil/uL (3.80-5.20); RED CELL DISTRIBUTION WIDTH 18.4 % (11.5-14.5); WHITE BLOOD COUNT 6.5 K/uL (4.8-10.8)
[2018-11-29] MEDS ORDERED: Pneumococcal 23-Valent Vaccine IM ONE (06:30)
[2018-11-29 06:32] LABS: IRON 221 ug/dL (37-170)
[2018-11-29 06:41] LABS: % IRON SATURATION 67 % (20-55); TOTAL IRON BINDING CAPACITY 330 ug/dL (250-450)
[2018-11-29 06:43] LABS: BLOOD UREA NITROGEN 9 mg/dl (7-17); CALCIUM 8.1 mg/dL (8.4-10.2); GFR NON-AFRICAN AMERICAN > 60
[2018-11-29 07:14] LABS: FERRITIN 4.7 ng/Ml (6.24-137.0)
[2018-11-29 08:09] VITALS: BP 109/66; PULSE 68; TEMP 98.4
[2018-11-29] MEDS ORDERED: medroxyPROGESTERone 5 MG TAB PO SCH (09:00)
--- NOTE | 2018-11-29 11:05 | CP.PCM.DIS ---
Provider - Provider Date of Admission: 11/28/18 17:35 Attending physician: Alfred Velazquez MD Time Spent in preparation of Discharge (in minutes): 25 Diagnosis - Discharge Diagnosis (1) Anemia Status: Acute Comment: Patient received 2 units of PRBC raising her Hgb from 7.1 to 9.3. Patient felt better and discharged in stable condition Hospital Course - Lab Results Lab Results: Most Recent Lab Values WBC 6.5 K/uL (4.8-10.8) 11/29/18 05:42 RBC 4.04 Mil/uL (3.80-5.20) 11/29/18 05:42 Hgb 9.3 g/dL (12.0-16.0) L D 11/29/18 05:42 Hct 29.0 % (34.0-47.0) L 11/29/18 05:42 MCV 71.9 fl (81.0-99.0) L D 11/29/18 05:42 MCH 23.1 pg (27.0-31.0) L 11/29/18 05:42 MCHC 32.1 g/dL (33.0-37.0) L 11/29/18 05:42 RDW 18.4 % (11.5-14.5) H 11/29/18 05:42 Plt Count 291 K/uL (130-400) 11/29/18 05:42 MPV 7.8 fl (7.2-11.7) 11/29/18 05:42 Neut % (Auto) 61.0 % (50.0-75.0) 11/29/18 05:42 Lymph % (Auto) 26.6 % (20.0-40.0) 11/29/18 05:42 [place] % (Auto) 5.5 % (0.0-10.0) 11/29/18 05:42 Eos % (Auto) 5.5 % (0.0-4.0) H 11/29/18 05:42 Baso % (Auto) 1.4 % (0.0-2.0) 11/29/18 05:42 Neut # (Auto) 4.0 K/uL (1.8-7.0) 11/29/18 05:42 Lymph # (Auto) 1.7 K/uL (1.0-4.3) 11/29/18 05:42 [place] # (Auto) 0.4 K/uL (0.0-0.8) 11/29/18 05:42 Eos # (Auto) 0.4 K/uL (0.0-0.7) 11/29/18 05:42 Baso # (Auto) 0.1 K/uL (0.0-0.2) 11/29/18 05:42 PT 11.6 Seconds (9.8-13.1) 11/28/18 16:26 INR 1.0 11/28/18 16:26 APTT 27.6 Seconds (25.6-37.1) 11/28/18 16:26 Sodium 138 mmol/l (132-148) 11/29/18 05:42 Potassium 4.1 MMOL/L (3.6-5.0) 11/29/18 05:42 Chloride 107 mmol/L (98-107) 11/29/18 05:42 Carbon Dioxide 26 mmol/L (22-30) 11/29/18 05:42 Anion Gap 9 (10-20) L 11/29/18 05:42 BUN 9 mg/dl (7-17) 11/29/18 05:42 Creatinine 0.5 mg/dl (0.7-1.2) L 11/29/18 05:42 Est GFR ( Amer) > 60 11/29/18 05:42 Est GFR (Non-Af Amer) > 60 11/29/18 05:42 Random Glucose 94 mg/dL (65-105) 11/29/18 05:42 Calcium 8.1 mg/dL (8.4-10.2) L 11/29/18 05:42 Iron 221 ug/dL (37-170) H 11/29/18 05:42 TIBC 330 ug/dL (250-450) 11/29/18 05:42 % Saturation 67 % (20-55) H 11/29/18 05:42 Ferritin 4.7 ng/Ml (6.24-137.0) L 11/29/18 05:42 Total Bilirubin 0.2 mg/dl (0.2-1.3) 11/28/18 16:26 AST 20 U/L (14-36) 11/28/18 16:26 ALT 21 U/L (9-52) 11/28/18 16:26 Alkaline Phosphatase 63 U/L (38-126) 11/28/18 16:26 Total Protein 6.9 G/DL (6.3-8.2) 11/28/18 16:26 Albumin 3.8 g/dL (3.5-5.0) 11/28/18 16:26 Globulin 3.1 gm/dL (2.2-3.9) 11/28/18 16:26 Albumin/Globulin Ratio 1.2 (1.0-2.1) 11/28/18 16:26 TSH 3rd Generation 2.61 mIU/ML (0.46-4.68) 11/29/18 05:42 Urine Color Dark red (YELLOW) 11/28/18 16:26 Urine Clarity Turbid (Clear) 11/28/18 16:26 Urine pH 6.5 (5.0-8.0) 11/28/18 16:26 Ur Specific [place] 1.020 (1.003-1.030) 11/28/18 16:26 Urine Protein >=300 mg/dL (NEGATIVE) 11/28/18 16:26 Urine Glucose (UA) 100 mg/dL (NEGATIVE) 11/28/18 16:26 Urine Ketones 40 mg/dL (NEGATIVE) 11/28/18 16:26 Urine Blood Trace-intact (NEGATIVE) 11/28/18 16:26 Urine Nitrate Positive (NEGATIVE) H 11/28/18 16:26 Urine Bilirubin Large (NEGATIVE) 11/28/18 16:26 Urine Urobilinogen 4.0 mg/dL (0.2-1.0) H 11/28/18 16:26 Ur Leukocyte Esterase Large [place]/uL (Negative) 11/28/18 16:26 Urine RBC (Auto) 40 /hpf (0-3) H 11/28/18 16:26 Urine Microscopic WBC 8 /hpf (0-5) H 11/28/18 16:26 Ur Squamous Epith Cells 1 /hpf (0-5) 11/28/18 16:26 Urine Bacteria Mod (<OCC) H 11/28/18 16:26 Blood Type B POSITIVE 11/28/18 16:26 Antibody Screen Negative 11/28/18 16:26 Crossmatch See Detail 11/28/18 16:26 BBK History Checked Patient has bt 11/28/18 16:26 - Hospital Course Hospital Course: 43 yo female with history of fibroid uteri and menorrhagia admitted because of symptomatic anemia secondary to excessive menstrual bleeding. Patient complained of weakness and dizziness. She received 2 units of PRBC and felt better. 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 Discharge Exam - Head Exam Head Exam: NORMAL INSPECTION - Eye Exam Eye Exam: absent: Scleral icterus - ENT Exam ENT Exam: Mucous Membranes Moist - Respiratory Exam Respiratory Exam: absent: Rales, Rhonchi, Wheezes, Respiratory Distress - Cardiovascular Exam Cardiovascular Exam: REGULAR RHYTHM, +S1, +S2 - GI/Abdominal Exam GI & Abdominal Exam: Soft. absent: Tenderness - Rectal Exam Rectal Exam: Deferred - Back Exam Back exam: NORMAL INSPECTION - Neurological Exam Neurological exam: Alert, Oriented x3 - Psychiatric Exam Psychiatric exam: Normal Affect - Skin Skin Exam: Dry, Intact Discharge Plan - Follow Up Plan Condition: STABLE Disposition: HOME/ ROUTINE
[2018-11-30 03:58] VITALS: O2SAT 99
== END 2018-11-29 14:00 | disposition home or self-care (01) ==
LOC: H.ER 15:24 → H.ERHOLD 17:35 → H.TEL 22:11
DX: N92.0 Excessive and frequent menstruation with regular cycle (principal); D25.9 Leiomyoma of uterus, unspecified; Z23 Encounter for immunization; D62 Acute posthemorrhagic anemia; J45.909 Unspecified asthma, uncomplicated; N18.9 Chronic kidney disease, unspecified; Z80.49 Family history of malignant neoplasm of other genital organs; Z87.442 Personal history of urinary calculi
CPT/HCPCS: 36415; 36430; 80048; 80053; 81003; 82728; 83540; 83550; 84443; 85025; 85610; 85730; 86850; 86900; 86920; 87086; 90471; 90732; 96361; 96365; 99285; G0378; J0696; J7030; P9051

== ENCOUNTER 2018-12-23 08:55 | Emergency (ER) | payer SELFPAY ==
[2018-12-23 09:01] VITALS: BMI 29.0
[2018-12-23 09:05] VITALS: O2SAT 98
[2018-12-23 10:15] LABS: BASO # 0.1 K/uL (0.0-0.2); BASO % 1.1 % (0.0-2.0); EOS # 0.2 K/uL (0.0-0.7); EOS % 4.3 % (0.0-4.0); HEMOGLOBIN 9.6 g/dL (12.0-16.0); LYMPH # 1.2 K/uL (1.0-4.3); LYMPH % 21.9 % (20.0-40.0); MEAN CELL VOLUME 73.7 fl (81.0-99.0); MEAN CORPUSCULAR HEMOGLOBIN 23.1 pg (27.0-31.0); MEAN CORPUSCULAR HGB CONC 31.3 g/dL (33.0-37.0); MEAN PLATELET VOLUME 7.9 fl (7.2-11.7); MONO # 0.2 K/uL (0.0-0.8); MONO % 3.3 % (0.0-10.0); NEUT # 3.9 K/uL (1.8-7.0); NEUT % 69.4 % (50.0-75.0); RBC 4.16 Mil/uL (3.80-5.20); RED CELL DISTRIBUTION WIDTH 19.3 % (11.5-14.5); WHITE BLOOD COUNT 5.6 K/uL (4.8-10.8)
--- NOTE | 2018-12-23 11:23 | ED PDOC ---
HPI: Female Pain Time Seen by Provider: 12/23/18 09:18 Chief Complaint (Nursing): Female Genitourinary History Per: Patient Onset/Duration Of Symptoms: Other (1 month) Current Symptoms Are (Timing): Still Present Severity: Moderate Quality Of Discomfort: Cramping Additional Complaint(s): Vaginal bleeding assoc with lower abdominal cramping x 1 month. H/o uterine fi broids that have bled and required transfusion in past. US in November 27, 2018 revealed fibroids. [facility]. Abnormal Vaginal Bleeding: Yes Past Medical History Vital Signs: Last Vital Signs Temp 97.8 F 12/23/18 09:00 Pulse 77 12/23/18 09:00 Resp 15 12/23/18 09:00 BP 134/67 12/23/18 09:00 Pulse Ox 98 12/23/18 09:03 Primary Care Provider: FAMILY PROVIDER,NO - Medical History PMH: Asthma, Gall Bladder Disease (gallstone), Kidney Stones Denies: Chronic Kidney Disease Other PMH: Fibroid uterus - Surgical History Surgical History: Cholecystectomy (1997), - Family History Family History: States: Unknown Family Hx - Immunization History Hx Tetanus Toxoid Vaccination: No Hx Influenza Vaccination: Yes Hx Pneumococcal Vaccination: Yes - Home Medications Home Medications: Ambulatory Orders Medication Instructions Recorded MedroxyPROGESTERone [Provera] 10 mg PO DAILY 11/28/18 traMADol [Ultram] 50 mg PO Q8 #10 tab 12/23/18 - Allergies Allergies/Adverse Reactions: Allergies Allergy/AdvReac Type Severity Reaction Status Date / Time No Known Allergies Allergy Verified 12/23/18 09:02 Review of Systems Gastrointestinal: Positive for: Abdominal Pain Genitourinary Female: Positive for: Vaginal Bleeding Physical Exam - Physical Exam Appears: Positive for: Non-toxic, No Acute Distress Skin: Positive for: Normal Color, Warm, DRY Gastrointestinal/Abdominal: Positive for: Bowel Sounds, Soft, Tenderness (LLQ), Other (Fibroid palpable LLQ) Pelvic Exam: Positive for: External Exam Normal, Blood (Mod blood in vault with clots), Mass (Left sided uterine fibroid palpable) - Laboratory Results Result Diagrams: 12/23/18 10:00 - ECG O2 Sat by Pulse Oximetry: 98 Disposition - Clinical Impression Clinical Impression: Fibroids, Menorrhagia - Patient ED Disposition Is Patient to be Admitted: No Counseled Patient/Family Regarding: Studies Performed, Diagnosis, Need For Followup, Rx Given - Disposition Referrals: [facility] [Outside] Disposition: Routine/Home Disposition Time: 11:46 Condition: FAIR Prescriptions: traMADol [Ultram] 50 mg PO Q8 #10 tab Instructions: Heavy Periods, Uterine Fibroids Forms: [employer] (H[place]er)
[2018-12-23 12:47] VITALS: BP 110/70; PULSE 74; RESP 20; TEMP 98
== END 2018-12-23 12:47 | disposition home or self-care (01) ==
LOC: H.ER 08:55
DX: N92.0 Excessive and frequent menstruation with regular cycle (principal); D25.9 Leiomyoma of uterus, unspecified; J45.909 Unspecified asthma, uncomplicated; Z87.442 Personal history of urinary calculi
CPT/HCPCS: 81025; 85025; 96374; 99285; J1885